=== PATIENT | female | born 1965 | race Caucasian/White ===

== ENCOUNTER 2017-06-08 00:05 | Emergency (ER) | payer MEDICAID ==
[~2017-06-08] VITALS: Ht 165.1 cm; Wt 66.0 kg
[2017-06-08 00:07] VITALS: BP 98/59
== END 2017-06-08 02:29 | disposition left against medical advice (07) ==
LOC: ER 00:07
DX: R53.1 Weakness (principal); R42 Dizziness and giddiness; Z53.21 Procedure and treatment not carried out due to patient leaving prior to being seen by health care provider